=== PATIENT | female | born 1940 | race Caucasian/White ===

== ENCOUNTER → 2017-07-29 | Outpatient (CLI) | payer OTHER ==
[~2017-07-29] MED LIST: ASPI-496 PO; ATOR-2 PO; ATOR40TA78 PO; CALC1CAP8 PO; CALC250T PO; CARV-39 PO; CARV12.543 PO; CHLO25TA PO; CHOL100011 PO; MULT-464 PO; OMEG1CAP25 PO; POT CHLOR ER PO; POTA20TA89 PO; POTA99TA2 PO
[2017-07-29 10:48] LABS: MICROSCOPIC NOT IND
[2017-07-29 10:49] LABS: CULTURE INDICATED? NO
[2017-07-29 10:51] LABS: BASOPHILS # (AUTO) 0.02 x10^3/uL (0-0.1); BASOPHILS % (AUTO) 0 % (0-1); EOSINOPHILS # (AUTO) 0.32 x10^3/uL (0-0.4); EOSINOPHILS % (AUTO) 4 % (1-7); LYMPHOCYTES # (AUTO) 2.96 x10^3/uL (1-3.4); LYMPHOCYTES % (AUTO) 35 % (22-44); MD NO; MEAN CORPUSCULAR HEMOGLOBIN 28.2 pg (27.0-34.8); MEAN CORPUSCULAR HGB CONC 33.7 g/dL (32.4-35.8); MEAN CORPUSCULAR VOLUME 83.6 fL (80-100); MEAN PLATELET VOLUME 8.6 fL (7.4-10.4); MONOCYTES # (AUTO) 0.64 x10^3/uL (0.2-0.8); MONOCYTES % (AUTO) 8 % (2-9); NEUTROPHILS % (AUTO) 53 % (42-75); PLATELET COUNT 248 x10^3/uL (130-400); RED BLOOD COUNT 5.54 x10^6/uL (3.82-5.3); RED CELL DISTRIBUTION WIDTH 14.6 % (9.6-15.2)
[2017-07-29 10:57] LABS: INTERNATIONAL NORMALIZED RATIO 1.01 (0.93-1.1); PROTHROMBIN TIME 10.5 Seconds (9.6-11.5)
[2017-07-29 11:00] LABS: ALANINE AMINOTRANSFERASE 24 U/L (12-78); ALBUMIN 3.8 g/dL (3.4-5.0); ANION GAP 9 mmol/L (5-15); CALCIUM 9.1 mg/dL (8.5-10.1); CHLORIDE 100 mmol/L (98-107); CREATININE 0.74 mg/dL (0.55-1.02)
[2017-07-29 11:02] LABS: ALKALINE PHOSPHATASE 80 U/L (45-117); BILIRUBIN,TOTAL 1.2 mg/dL (0.2-1.0); TOTAL PROTEIN 7.8 g/dL (6.4-8.2)
[2017-07-29 12:47] LABS: HEMOGLOBIN A1C 6.2 % (4.2-6.3)
== END ==
LOC: STAR 09:14
PROVIDERS: ATTEND Orthopaedic Surgery
DX: Z01.818 Encounter for other preprocedural examination (principal); M17.12 Unilateral primary osteoarthritis, left knee
CPT/HCPCS: 36415; 80053; 81003; 83036; 85025; 85610; 85730; 87081; 87806; 93005; G0475

== ENCOUNTER 2017-08-09 09:19 | Inpatient (IN) | payer MEDICARE, OTHER ==
[~2017-08-09] VITALS: Ht 149.9 cm; Wt 81.8 kg
[~2017-08-09 09:19] MED LIST changes: +BUPIVACAINE/PF 0.25% ONE; +DEXAMETHASONE 4 MG/ML, 1ML ONE; +EPINEPHRINE 1 MG/ML, 1ML ONE; +KETOROLAC 60 MG/2 ML ONE; +LIDOCAINE-MPF 2% ,5ML ONE; +ONDANSETRON 2MG/ML, 2ML ONE; +PROPOFOL 10 MG/ML, 20ML ONE; +ROPIvacaine/PF 0.2%, 20 ML ONE; +TRANEXAMIC ACID 100 MG/ML, 10ML ONE
[2017-08-09] MEDS ORDERED: LACTATED RINGERS 1,000 ML IV SCH ×2 (09:56→10:02)
[2017-08-09] MEDS ORDERED: ACETAMINOPHEN 500 MG TABLET PO ONE (10:00)
[2017-08-09] MEDS ORDERED: GABAPENTIN 300 MG CAPSULE PO ONE (10:00)
[2017-08-09 10:03] VITALS: BP 120/50
[2017-08-09] MEDS ORDERED: AMLO5TAB2 PO (10:12)
[2017-08-09] MEDS ORDERED: FENTANYL PF 250 MCG/5ML ONE ×2 (10:19→15:29)
[2017-08-09] MEDS ORDERED: MIDAZOLAM 1 MG/ML, 2ML ONE (10:19)
[2017-08-09] MEDS ORDERED: ACETAMINOPHEN 500 MG TABLET ONE (10:20)
[2017-08-09] MEDS ORDERED: GABAPENTIN 300 MG CAPSULE ONE (10:21)
[2017-08-09] MEDS ORDERED: LIDOCAINE-MPF 1%, 2ML INFIL ONE (10:30)
[2017-08-09 10:45] LABS: ALBUMIN 3.7 g/dL (3.4-5.0); ANION GAP 10 mmol/L (5-15); CHLORIDE 103 mmol/L (98-107)
[2017-08-09 10:49] LABS: ALANINE AMINOTRANSFERASE 22 U/L (12-78); ALKALINE PHOSPHATASE 74 U/L (45-117); TOTAL PROTEIN 7.4 g/dL (6.4-8.2)
[2017-08-09] MEDS ORDERED: ONDANSETRON ODT 8 MG ONE (10:54)
[2017-08-09] MEDS ORDERED: OxyconTIN ER 10 MG TAB.ER ONE (10:54)
[2017-08-09] MEDS ORDERED: MAGNESIUM HYDROXIDE 8%, 30ML UDC PO PRN (11:30)
[2017-08-09] MEDS ORDERED: HYDROmorphone 1 MG/ML, 1ML IV PRN ×2 (11:30→12:00)
[2017-08-09] MEDS ORDERED: DIPHENHYDRAMINE 25 MG CAPSULE PO PRN (11:30)
[2017-08-09] MEDS ORDERED: ONDANSETRON 2MG/ML, 2ML IV PRN (11:30)
[2017-08-09] MEDS ORDERED: ACETAMINOPHEN 650 MG/20.3 ML UDC PO PRN (11:30)
[2017-08-09] MEDS ORDERED: SENNA/DOCUSATE TABLET PO PRN (11:30)
[2017-08-09] MEDS ORDERED: DIAZEPAM 5 MG TABLET PO PRN (11:30)
[2017-08-09] MEDS ORDERED: OXYcodone IR 5MG TABLET PO PRN (11:30)
[2017-08-09] MEDS ORDERED: ALUMINUM/MAG/SIMETHICONE 30 ML UDC PO PRN (11:30)
[2017-08-09] MEDS ORDERED: ONDANSETRON 4 MG TABLET PO PRN (11:30)
[2017-08-09] MEDS ORDERED: HALOPERIDOL 5 MG/ML IV PRN (12:00)
[2017-08-09] MEDS ORDERED: PROMETHAZINE 25 MG/ML, 1ML IV PRN (12:00)
[2017-08-09] MEDS ORDERED: MEPERIDINE/PF 25MG/0.5ML IVPush PRN (12:00)
[2017-08-09] MEDS ORDERED: LABETALOL 5MG/ML, 20ML IV PRN (12:00)
[2017-08-09] MEDS ORDERED: FENTANYL PF 100 MCG/2ML IV PRN (12:00)
[2017-08-09] MEDS ORDERED: hydrALAzine 20 MG/ML, 1ML IV PRN (12:00)
[2017-08-09] MEDS ORDERED: OXYcodone 5 MG/5 ML ORAL.SOL UDC PO PRN (12:00)
[2017-08-09] MEDS ORDERED: MORPHINE SULFATE 4 MG/ML, 1ML ONE (12:17)
[2017-08-09] MEDS ORDERED: TRANEXAMIC ACID 1,000 MG in SODIUM CHLORIDE 0.9% 100 ML IVPB ONE (13:11)
[2017-08-09 14:05] VITALS: BP 108/52
[2017-08-09] MEDS: D5%-0.45NACL+KCL 20MEQ 1,000 ML IV SCH (17:54)
[2017-08-09] MEDS: ASPIRIN 81 MG TABLET EC PO SCH (18:54)
[2017-08-09] MEDS: CEFAZOLIN PMX 1GM/50ML 50 ML IVPB SCH (19:56)
[2017-08-09] MEDS: DOCUSATE 100 MG CAPSULE PO SCH (19:56)
[2017-08-09 20:17] VITALS: BP 117/69
[2017-08-10 00:13] VITALS: BP 107/55
[2017-08-10 03:54] VITALS: BP 101/56
[2017-08-10] MEDS: D5%-0.45NACL+KCL 20MEQ 1,000 ML IV SCH (03:59)
[2017-08-10] MEDS: CEFAZOLIN PMX 1GM/50ML 50 ML IVPB SCH (04:02)
[2017-08-10] MEDS: ASPIRIN 81 MG TABLET EC PO SCH (05:44)
[2017-08-10] MEDS ORDERED: DEXAMETHASONE 4 MG/ML, 1ML IVPush SCH (06:00)
[2017-08-10 07:04] VITALS: BP 113/65
[2017-08-10] MEDS ORDERED: TAMSULOSIN 0.4 MG CAP.ER.24H PO SCH (09:00)
[2017-08-10] MEDS: DOCUSATE 100 MG CAPSULE PO SCH (09:23)
[2017-08-10] MEDS ORDERED: KETOROLAC 30 MG/1 ML IV SCH (11:30)
[2017-08-10 12:05] VITALS: BP 101/61
[2017-08-10] MEDS ORDERED: DIAZ5TAB PO (12:44)
[2017-08-10] MEDS ORDERED: CELE200C PO (12:44)
[2017-08-10] MEDS ORDERED: DOCU-131 PO (12:44)
[2017-08-10] MEDS ORDERED: ASPI-621 PO (12:44)
[2017-08-10] MEDS ORDERED: ONDA4TAB10 PO (12:44)
[2017-08-10] MEDS ORDERED: TRAM50TA2 PO (12:45)
[2017-08-10 14:08] VITALS: BP 121/69
[2017-08-10] MEDS ORDERED: OXYC5CAP2 PO (14:23)
== END 2017-08-10 14:44 | disposition home or self-care (01) | DRG 470 ==
LOC: ORIP 09:39 → 4NOR 14:07 → DCLOUNGE 08-10 14:20
PROVIDERS: ADMIT Orthopaedic Surgery; ATTEND Orthopaedic Surgery
PROC: 0SRD069 Replacement of Left Knee Joint with Oxidized Zirconium on Polyethylene Synthetic Substitute, Cemented, Open Approach (ICD-10-PCS; principal; 2017-08-09 11:30)
DX: M17.12 Unilateral primary osteoarthritis, left knee (principal)
CPT/HCPCS: 36415; 80053; 85014; 85018; C1713; J0171; J0690; J1100; J1885; J2250; J2405; J2704; J2795; J3010; J3490; Q0162; C1776; J3480; J7120

== ENCOUNTER → 2019-04-19 | Outpatient (CLI) | payer MEDICARE, OTHER ==
[~2019-04-19] MED LIST changes: +AMLO-150 PO; +ASPI81TA45 PO; -BUPIVACAINE/PF 0.25% ONE; +CELE200C PO; -DEXAMETHASONE 4 MG/ML, 1ML ONE; +DIAZ5TAB PO; +DOCU-131 PO; -EPINEPHRINE 1 MG/ML, 1ML ONE; -KETOROLAC 60 MG/2 ML ONE; -LIDOCAINE-MPF 2% ,5ML ONE; +ONDA4TAB10 PO; -ONDANSETRON 2MG/ML, 2ML ONE; +OXYC5CAP2 PO; -PROPOFOL 10 MG/ML, 20ML ONE; -ROPIvacaine/PF 0.2%, 20 ML ONE; +TRAM50TA2 PO; -TRANEXAMIC ACID 100 MG/ML, 10ML ONE
== END | disposition home or self-care (01) ==
LOC: CVU 14:34
PROVIDERS: ATTEND Registered Nurse
DX: I65.23 Occlusion and stenosis of bilateral carotid arteries (principal); I10 Essential (primary) hypertension
CPT/HCPCS: 93880

== ENCOUNTER → 2019-04-24 | Outpatient (CLI) | payer MEDICARE, OTHER ==
[~2019-04-24] MED LIST changes: +REGADENOSON 0.4 MG/5 ML SYRINGE ONE
== END | disposition home or self-care (01) ==
LOC: CFH 07:50
PROVIDERS: ATTEND Internal Medicine Cardiovascular Disease
DX: I25.10 Atherosclerotic heart disease of native coronary artery without angina pectoris (principal); R06.02 Shortness of breath
CPT/HCPCS: 78452; 93017; A9502; J2785

== ENCOUNTER 2020-06-21 11:37 | Emergency (ER) | payer MEDICARE, OTHER ==
[~2020-06-21] VITALS: Ht 149.9 cm; Wt 81.2 kg
[~2020-06-21 11:37] MED LIST changes: -REGADENOSON 0.4 MG/5 ML SYRINGE ONE
[2020-06-21] MEDS ORDERED: DIPH,PERTUSS(ACELL),TET VAC/PF 0.5 ML IM-VACC ONE ×2 (12:00→12:32)
--- NOTE | 2020-06-21 12:11 | NUR ---
pt to XR
[2020-06-21] MEDS ORDERED: HYDROcodone/APAP 5/325 TABLET ONE (13:16)
[2020-06-21] MEDS ORDERED: NEOSPORIN OINT. PKT 1 PACKET ONE (13:17)
[2020-06-21] MEDS ORDERED: HYDROcodone/APAP 5/325 TABLET PO ONE (13:30)
[2020-06-21 14:36] VITALS: BP 193/82
== END 2020-06-21 15:14 | disposition home or self-care (01) ==
LOC: ED 13:32
DX: S02.2XXA Fracture of nasal bones, initial encounter for closed fracture (principal); S46.011A Strain of muscle(s) and tendon(s) of the rotator cuff of right shoulder, initial encounter; S80.02XA Contusion of left knee, initial encounter; I10 Essential (primary) hypertension; E78.00 Pure hypercholesterolemia, unspecified; I25.2 Old myocardial infarction; W01.0XXA Fall on same level from slipping, tripping and stumbling without subsequent striking against object, initial encounter; Y93.89 Activity, other specified; Y92.89 Other specified places as the place of occurrence of the external cause; Y99.8 Other external cause status
CPT/HCPCS: 70450; 70486; 90471; 90715